=== PATIENT | male | born 1970 | race American Indian/Alaskan Native ===

== ENCOUNTER 2018-07-04 10:30 | Emergency (ER) | payer MEDICAID ==
[2018-07-04 10:57] VITALS: BP 137/83
[2018-07-04] MEDS ORDERED: TORADOL IM ONE (14:25)
[2018-07-04] MEDS ORDERED: INDOCIN PO ONE (14:26)
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
== END 2018-07-04 15:42 | disposition home or self-care (01) ==
LOC: EDSEX → ED 10:30
DX: L97.429 Non-pressure chronic ulcer of left heel and midfoot with unspecified severity (principal); M10.9 Gout, unspecified; I50.9 Heart failure, unspecified; E11.9 Type 2 diabetes mellitus without complications
CPT/HCPCS: 96372; 99282; J1885

== ENCOUNTER 2018-08-08 08:06 | Outpatient (CLI) | payer MEDICAID ==
[2018-08-08 08:46] LABS: Albumin 3.6 g/dL (3.9-5); Calcium 8.7 mg/dL (8.4-10.2)
== END 2018-08-08 08:07 | disposition home or self-care (01) ==
LOC: LAB 08:06
PROVIDERS: ATTEND Internal Medicine Nephrology
DX: N18.3 Chronic kidney disease, stage 3 (moderate) (principal); Z88.6 Allergy status to analgesic agent
CPT/HCPCS: 36415; 80048; 82040; 84100

== ENCOUNTER 2019-01-16 07:22 | Outpatient (CLI) | payer MEDICAID ==
[2019-01-16 08:07] LABS: Albumin 3.4 g/dL (3.9-5); Calcium 8.4 mg/dL (8.4-10.2)
== END 2019-01-16 07:23 | disposition home or self-care (01) ==
LOC: LAB 07:22
PROVIDERS: ATTEND Internal Medicine Nephrology
DX: N18.3 Chronic kidney disease, stage 3 (moderate) (principal); I50.9 Heart failure, unspecified
CPT/HCPCS: 36415; 80048; 82040; 84100

== ENCOUNTER 2019-01-20 09:50 | Inpatient (IN) | payer MEDICAID, OTHER ==
[2019-01-20] MEDS ORDERED: NORCO 5/325 PO ONE (10:36)
[2019-01-20] MEDS ORDERED: FLEXERIL PO ONE (10:36)
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
[2019-01-20 11:28] LABS: Hematocrit 37.4 % (35.5-45.6); Hemoglobin 11.9 gm/dl (11.8-15.2); Mean Corpuscular HGB Conc 32 % (32-34); Mean Corpuscular Volume 86 fl (84-94); Platelet Count 188 K/mm3 (140-440); Red Blood Count 4.35 M/mm3 (3.65-5.03)
[2019-01-20] MEDS ORDERED: DILAUDID IV ONE (11:58)
[2019-01-20] MEDS ORDERED: APRESOLINE IV ONE (11:58)
[2019-01-20 12:09] LABS: Chol/HDL Ratio 1.37 %
[2019-01-20 13:18] LABS: Alanine Aminotransferase 12 units/L (7-56)
[2019-01-20 13:19] LABS: Bilirubin,Direct < 0.2 mg/dL (0-0.2)
[2019-01-20] MEDS ORDERED: PROVENTIL IH ONE (13:26)
[2019-01-20] MEDS ORDERED: D50W (25GM) Syringe IV ONE (13:26)
[2019-01-20] MEDS ORDERED: CALCIUM CHLORIDE 1,000 MG in NACL 0.9% 100 ML IV ONE (13:26)
[2019-01-20] MEDS ORDERED: HumuLIN R IV ONE (13:26)
[2019-01-20] MEDS ORDERED: NACL 0.9% 500 ML 500 ML IV ONE (13:29)
[2019-01-20] MEDS ORDERED: LASIX IV ONE (13:29)
[2019-01-20] MEDS ORDERED: KIONEX PO ONE (13:29)
[2019-01-20 14:31] LABS: Bilirubin,Urine NEG (Negative); Blood,Urine SM (Negative); Color,Urine Straw (Yellow); Mucus,Urine FEW /HPF; Urobilinogen,Urine < 2.0 mg/dL (<2.0); WBC,Urine < 1.0 /HPF (0.0-6.0)
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
[2019-01-20 16:11] LABS: Calcium 9.5 mg/dL (8.4-10.2)
[2019-01-20] MEDS ORDERED: ZOFRAN IV PRN (17:19)
[2019-01-20] MEDS ORDERED: SODIUM CHLORIDE FLUSH SYRINGE 10 ML IV PRN (17:19)
[2019-01-20] MEDS ORDERED: TYLENOL PO PRN (17:19)
[2019-01-20] MEDS ORDERED: REGLAN IV PRN (17:19)
[2019-01-20] MEDS: NACL 0.9% 1000 ML 1,000 ML IV SCH (20:44)
[2019-01-20] MEDS: SODIUM CHLORIDE FLUSH SYRINGE 10 ML IV SCH ×2 (20:45→22:53)
[2019-01-20] MEDS: PERCOCET 5/325 PO PRN (21:06)
[2019-01-20] MEDS: PEPCID PO SCH (21:06)
[2019-01-20] MEDS ORDERED: D50W (25GM) Syringe IV PRN (21:15)
[2019-01-20] MEDS: HumaLOG SUB-Q SCH (23:07)
[2019-01-21] MEDS: COREG PO SCH ×3 (00:28→21:50)
[2019-01-21] MEDS: APRESOLINE PO SCH ×3 (00:29→21:48)
[2019-01-21] MEDS: DILAUDID IV PRN (00:37)
[2019-01-21] MEDS: BENADRYL IV PRN ×2 (02:46→21:49)
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
[2019-01-21] MEDS: NACL 0.9% 1000 ML 1,000 ML IV SCH (06:32)
[2019-01-21 07:11] LABS: Albumin 3.4 g/dL (3.9-5); Calcium 8.6 mg/dL (8.4-10.2)
[2019-01-21] MEDS: HumaLOG SUB-Q SCH ×4 (08:44→21:48)
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
--- NOTE | 2019-01-21 09:33 | Event Note ---
Date: 01/21/19 Pt's reports his outpatient lacing presser is Dr Olvera, states he has seen him in the office Dr Olvera notified about consult We will sign off
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
[2019-01-21] MEDS: PEPCID PO SCH ×2 (10:46→21:48)
[2019-01-21] MEDS: PROCARDIA XL PO SCH (10:46)
[2019-01-21] MEDS: SODIUM CHLORIDE FLUSH SYRINGE 10 ML IV SCH ×2 (10:47→21:49)
--- NOTE | 2019-01-21 11:43 | Event Note ---
Date: 01/21/19 Stress test reviewed - fixed defect noted with an EF of 53%.
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
[2019-01-21] MEDS: PERCOCET 5/325 PO PRN (18:27)
[2019-01-21] MEDS: LOVENOX SUB-Q SCH (21:48)
[2019-01-22 05:55] LABS: Calcium 8.2 mg/dL (8.4-10.2)
[2019-01-22] MEDS: PERCOCET 5/325 PO PRN (07:04)
[2019-01-22] MEDS: HumaLOG SUB-Q SCH ×4 (08:26→23:27)
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
--- NOTE | 2019-01-22 10:11 | Progress Note ---
Subjective Date of service: 01/22/19 Interval history: face bones CT looks normal and the crnial CT of the brain is also normal plan further w/u encephalopathy elevated creatinine Objective - Vital Sign Vital Signs - 12hr 01/22/19 01/22/19 05:03 07:04 Temperature 98.8 F Pulse Rate 87 Respiratory 20 18 Rate Blood Pressure 162/97 O2 Sat by Pulse 93 Oximetry - Laboratory Findings CBC and BMP: 01/20/19 11:04 01/22/19 05:16 Abnormal Lab Findings: Abnormal Labs 01/20/19 01/20/19 01/20/19 11:04 11:04 12:27 MCH 27 L RDW 16.0 H Potassium 5.5 H 6.0 H Chloride 107.3 H Carbon Dioxide 20 L BUN 46 H Creatinine 2.6 H Glucose 165 H POC Glucose Hemoglobin A1c Calcium Troponin T 0.189 H* Total Protein Albumin LDL Cholesterol Direct 44 L HDL Cholesterol 95 H 01/20/19 01/20/19 01/20/19 12:27 14:06 15:03 MCH RDW Potassium Chloride Carbon Dioxide BUN Creatinine Glucose POC Glucose 131 H 53 L Hemoglobin A1c Calcium Troponin T 0.171 H* Total Protein Albumin LDL Cholesterol Direct HDL Cholesterol 01/20/19 01/20/19 01/20/19 15:34 17:36 21:59 MCH RDW Potassium Chloride 108.2 H Carbon Dioxide 20 L BUN 42 H Creatinine 2.4 H Glucose POC Glucose 207 H Hemoglobin A1c 7.1 H Calcium Troponin T Total Protein Albumin LDL Cholesterol Direct HDL Cholesterol 01/21/19 01/21/19 01/21/19 06:06 08:14 11:43 MCH RDW Potassium Chloride 110.4 H Carbon Dioxide 21 L BUN 39 H Creatinine 2.3 H Glucose 117 H POC Glucose 125 H 134 H Hemoglobin A1c Calcium Troponin T Total Protein 6.0 L Albumin 3.4 L LDL Cholesterol Direct HDL Cholesterol 01/21/19 01/22/19 01/22/19 17:00 05:16 07:55 MCH RDW Potassium Chloride 108.3 H Carbon Dioxide 21 L BUN 36 H Creatinine 2.4 H Glucose 187 H POC Glucose 155 H 163 H Hemoglobin A1c Calcium 8.2 L Troponin T Total Protein Albumin LDL Cholesterol Direct HDL Cholesterol
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
--- NOTE | 2019-01-22 10:22 | Cat Scan Report ---
CT HEAD WITHOUT CONTRAST INDICATION: slurred speech. TECHNIQUE: All CT scans at this location are performed using CT dose reduction for ALARA by means of automated e xposure control. COMPARISON: 2 days prior. FINDINGS: HEMORRHAGE: None. EXTRA-AXIAL SPACES: Normal in size and morphology for the patient's age. VENTRICULAR SYSTEM: Normal in size and morphology for the patient's age. BRAIN PARENCHYMA: No acute findings. MIDLINE SHIFT OR HERNIATION: None. ORBITS: Normal as visualized. SOFT TISSUES OF HEAD: Normal. CALVARIUM: Normal. VISUALIZED PARANASAL SINUSES AND MASTOID AIR CELLS: Clear. ADDITIONAL FINDINGS: None. IMPRESSION: 1. No acute intracranial abnormality. Signer Name: Eleuterio Hogan MD Signed: 01/22/2019 10:18 AM Workstation Name: [id number]
[2019-01-22] MEDS ORDERED: ASPIRIN PO STA (10:35)
[2019-01-22] MEDS ORDERED: IBUPROFEN PO PRN (10:36)
[2019-01-22] MEDS: APRESOLINE PO SCH ×2 (11:21→23:25)
[2019-01-22] MEDS: COREG PO SCH ×2 (11:21→23:24)
[2019-01-22] MEDS: PROCARDIA XL PO SCH (11:22)
[2019-01-22] MEDS: PEPCID PO SCH ×2 (11:22→23:24)
[2019-01-22] MEDS: SODIUM CHLORIDE FLUSH SYRINGE 10 ML IV SCH (11:24)
[2019-01-22] MEDS: BENADRYL IV PRN (11:28)
[2019-01-22] MEDS: APRESOLINE IV PRN (13:49)
[2019-01-22] MEDS: DILAUDID IV PRN ×2 (16:32→23:26)
[2019-01-22] MEDS: LOVENOX SUB-Q SCH (23:26)
[2019-01-23] MEDS: SODIUM CHLORIDE FLUSH SYRINGE 10 ML IV SCH ×3 (04:09→21:23)
[2019-01-23 08:04] LABS: Calcium 8.4 mg/dL (8.4-10.2)
[2019-01-23] MEDS: HumaLOG SUB-Q SCH ×5 (08:16→21:54)
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
[2019-01-23] MEDS: PROCARDIA XL PO SCH (10:35)
[2019-01-23] MEDS: PEPCID PO SCH ×2 (10:35→21:22)
[2019-01-23] MEDS: COREG PO SCH ×2 (10:36→21:22)
[2019-01-23] MEDS: APRESOLINE PO SCH ×2 (10:36→21:22)
[2019-01-23] MEDS: DILAUDID IV PRN ×3 (10:46→21:20)
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
[2019-01-23] MEDS: APRESOLINE IV PRN ×2 (12:46→17:47)
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
--- NOTE | 2019-01-23 16:50 | XRay Report ---
CHEST 2 VIEWS INDICATION: shortness of breath. COMPARISON: 01/20/2019 FINDINGS: Support devices: None. Heart: Within normal limits. Lungs: Bronchovascular markings are prominent. No acute air space or interstitial disease. Pleura: No significant pleural effusion. No pneumothorax. Additional findings: None. IMPRESSION: 1. Questionable mild pulmonary edema Signer Name: Gilbert Escobedo MD Signed: 01/23/2019 4:45 PM Workstation Name: [id number]
[2019-01-23] MEDS: CATAPRES PO SCH ×2 (18:02→21:22)
[2019-01-23] MEDS: ECOTRIN PO SCH (18:10)
[2019-01-23] MEDS: PROVENTIL IH PRN (18:46)
[2019-01-23] MEDS: LOVENOX SUB-Q SCH (21:21)
[2019-01-23] MEDS: BENADRYL IV PRN (21:46)
[2019-01-24] MEDS: PROVENTIL IH PRN ×2 (07:52→13:09)
[2019-01-24 07:55] LABS: Hematocrit 30.9 % (35.5-45.6); Hemoglobin 9.8 gm/dl (11.8-15.2); Mean Corpuscular HGB Conc 32 % (32-34); Mean Corpuscular Volume 85 fl (84-94); Platelet Count 166 K/mm3 (140-440); Red Blood Count 3.62 M/mm3 (3.65-5.03)
[2019-01-24 08:09] LABS: Calcium 8.4 mg/dL (8.4-10.2)
[2019-01-24 09:01] LABS: Hematocrit 35.2 % (35.5-45.6); Mean Corpuscular HGB Conc 31 % (32-34); Mean Corpuscular Volume 87 fl (84-94); Platelet Count 184 K/mm3 (140-440); Red Blood Count 4.06 M/mm3 (3.65-5.03); Red Cell Distribution Width 16.2 % (13.2-15.2)
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
[2019-01-24] MEDS: HumaLOG SUB-Q SCH ×2 (10:28→11:38)
[2019-01-24] MEDS: APRESOLINE PO SCH ×2 (10:28→15:22)
--- NOTE | 2019-01-24 11:18 | Nuclear Medicine Report ---
VENTILATION PERFUSION PULMONARY SCINTIGRAPHY HISTORY: Shortness of breath, elevated d-dimer COMPARISON: 01/23/2019 chest radiograph. TECHNIQUE: Radiopharmaceutical was inhaled. Tc-99m-MAA was then injected. Ventilation and perfusion images were acquired. RADIOPHARMACEUTICAL: 10 mCi of Xe-133 inhaled 5.3 mCi of Tc-99m-MAA injected FINDINGS: VENTILATION: No significant air trapping or defect. PERFUSION: No significant segmental or non-segmental defect. Additional Findings: None. IMPRESSION: 1. Low probability for pulmonary embolism. Signer Name: Oscar Louis Jr, MD Signed: 01/24/2019 11:14 AM Workstation Name: [id number]
[2019-01-24 11:34] VITALS: BP 164/95
[2019-01-24] MEDS: PEPCID PO SCH (11:35)
[2019-01-24] MEDS: PROCARDIA XL PO SCH (11:36)
[2019-01-24] MEDS: CATAPRES PO SCH (11:36)
[2019-01-24] MEDS: COREG PO SCH (11:37)
[2019-01-24] MEDS: ECOTRIN PO SCH (11:37)
[2019-01-24] MEDS: SODIUM CHLORIDE FLUSH SYRINGE 10 ML IV SCH (11:38)
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
== END 2019-01-24 17:00 | disposition home or self-care (01) | DRG 682 ==
LOC: ED 09:50 → 3A 17:19
PROVIDERS: ADMIT Internal Medicine; ATTEND Internal Medicine
PROC: 4A033R1 Measurement of Arterial Saturation, Peripheral, Percutaneous Approach (ICD-10-PCS; principal; 2019-01-23)
DX: N17.0 Acute kidney failure with tubular necrosis (principal); J96.00 Acute respiratory failure, unspecified whether with hypoxia or hypercapnia; Z68.42 Body mass index [BMI] 45.0-49.9, adult; I13.0 Hypertensive heart and chronic kidney disease with heart failure and stage 1 through stage 4 chronic kidney disease, or unspecified chronic kidney disease; I50.42 Chronic combined systolic (congestive) and diastolic (congestive) heart failure; G93.40 Encephalopathy, unspecified; R47.01 Aphasia; E87.2 Acidosis; E87.5 Hyperkalemia; I25.2 Old myocardial infarction; M10.9 Gout, unspecified; I25.10 Atherosclerotic heart disease of native coronary artery without angina pectoris; E11.22 Type 2 diabetes mellitus with diabetic chronic kidney disease; E66.01 Morbid (severe) obesity due to excess calories; E11.21 Type 2 diabetes mellitus with diabetic nephropathy; N18.3 Chronic kidney disease, stage 3 (moderate); F41.9 Anxiety disorder, unspecified; I16.0 Hypertensive urgency; R07.89 Other chest pain; I08.1 Rheumatic disorders of both mitral and tricuspid valves; I27.20 Pulmonary hypertension, unspecified; R56.9 Unspecified convulsions; Y93.89 Activity, other specified; V87.7XXA Person injured in collision between other specified motor vehicles (traffic), initial encounter; Y92.89 Other specified places as the place of occurrence of the external cause; Y99.8 Other external cause status; Z89.511 Acquired absence of right leg below knee; Z95.5 Presence of coronary angioplasty implant and graft; Z79.4 Long term (current) use of insulin
CPT/HCPCS: 36415; 36600; 70450; 70551; 71046; 72125; 78582; 80048; 80053; 80061; 80076; 81001; 82803; 82962; 83036; 83880; 84132; 84484; 85027; 85379; 87116; 93005; 93010; 93306; 94640; 94644; 94760; 96374; 96375; G0378; A9540; A9558; J0360; J1170; J1200; J1650; J1815; J1940; J7030; J7040

== ENCOUNTER 2019-03-15 11:00 | Outpatient (CLI) | payer MEDICAID | END 2019-03-15 11:01 | disposition home or self-care (01) | LOC: SLR 11:00 | PROVIDERS: ATTEND Specialist | DX: G47.33 Obstructive sleep apnea (adult) (pediatric) (principal) | CPT/HCPCS: 95811 ==

== ENCOUNTER → 2021-10-30 12:30 | Emergency (ER) | payer MEDICAID | END | disposition left against medical advice (07) | LOC: ED 12:30 | DX: F41.9 Anxiety disorder, unspecified (principal); Z76.0 Encounter for issue of repeat prescription; Z53.21 Procedure and treatment not carried out due to patient leaving prior to being seen by health care provider ==